=== PATIENT | male | born 1970 ===

== ENCOUNTER 2017-06-15 13:34 | Emergency (ER) | payer OTHER ==
[2017-06-15] MEDS ORDERED: TDAP VACCINE 0.5 ML SUS IM ONE ×2 (15:29→15:43)
[2017-06-15] MEDS ORDERED: LIDOCAINE 1% W/EPI MPF 10 ML SOL INFIL ONE (15:57)
[2017-06-15] MEDS ORDERED: LIDOCAINE 1% W/EPI MPF 10 ML SOL ONE (15:58)
[2017-06-15 16:41] VITALS: RESP 16
[2017-06-15 17:04] VITALS: BP 130/75; PULSE 89; TEMP 97.7; O2SAT 100
== END 2017-06-15 17:11 | disposition short-term general hospital (02) ==
LOC: ED 13:34
DX: S02.119A Unspecified fracture of occiput, initial encounter for closed fracture (principal); S02.0XXA Fracture of vault of skull, initial encounter for closed fracture; S02.40FA Zygomatic fracture, left side, initial encounter for closed fracture; S06.4X9A Epidural hemorrhage with loss of consciousness of unspecified duration, initial encounter; S01.81XA Laceration without foreign body of other part of head, initial encounter; R68.84 Jaw pain; S20.222A Contusion of left back wall of thorax, initial encounter; S80.02XA Contusion of left knee, initial encounter; S80.211A Abrasion, right knee, initial encounter
CPT/HCPCS: 70450; 71250; 72125; 73130; 73560; 74176; 90715; 99285

== ENCOUNTER 2017-07-09 23:19 | Emergency (ER) | payer OTHER ==
[2017-07-10 00:35] LABS: BASOPHILS % (AUTO) 0 % (0-3); EOSINOPHILS % (AUTO) 1 % (0-9); HEMATOCRIT 36 % (39-53); MEAN CORPUSCULAR HGB CONC 34.7 gm/dl (32.0-36.0); MEAN CORPUSCULAR VOLUME 92 fL (80-100); NEUTROPHILS % (AUTO) 80.4 % (37-80)
[2017-07-10 00:58] VITALS: TEMP 98
[2017-07-10 01:00] LABS: ALBUMIN 3.6 gm/dl (3.4-5.0); POTASSIUM 3.9 mMol/L (3.5-5.1); THYROID STIMULATING HORMONE 0.334 uIU/ml (0.358-3.740)
[2017-07-10 01:54] VITALS: BP 120/74; PULSE 58; RESP 16; O2SAT 97
== END 2017-07-10 01:38 | disposition home or self-care (01) ==
LOC: ED 23:19
DX: S80.12XD Contusion of left lower leg, subsequent encounter (principal); Y09 Assault by unspecified means
CPT/HCPCS: 80053; 82550; 84443; 85025; 85378; 85610; 99283

== ENCOUNTER 2017-07-21 17:02 | Emergency (ER) | payer OTHER ==
[2017-07-21] MEDS ORDERED: SODIUM CHLORIDE 0.9% 1000ML 1,000 ML IV ONE (17:35)
[2017-07-21] MEDS ORDERED: ONDANSETRON HCL 4 MG/2 ML SOL IV ONE (17:35)
[2017-07-21] MEDS ORDERED: PANTOPRAZOLE SODIUM 40 MG/10 ML PDS IV ONE (17:35)
[2017-07-21 17:39] VITALS: RESP 16; TEMP 97.5
[2017-07-21] MEDS ORDERED: ONDANSETRON HCL 4 MG/2 ML SOL ONE (17:44)
[2017-07-21] MEDS ORDERED: ESOMEPRAZOLE SODIUM 40 MG VIAL IV ONE ×2 (17:46→18:00)
[2017-07-21] MEDS ORDERED: KETOROLAC TROMETHAMINE 30 MG/ML SOL IV ONE (18:25)
[2017-07-21] MEDS ORDERED: KETOROLAC TROMETHAMINE 30 MG/ML SOL ONE (18:32)
[2017-07-21 19:32] VITALS: BP 137/82; PULSE 67; O2SAT 95
== END 2017-07-21 19:18 | disposition home or self-care (01) ==
LOC: ED 17:02
DX: R51 Headache (principal); E87.1 Hypo-osmolality and hyponatremia; E86.0 Dehydration; Z87.828 Personal history of other (healed) physical injury and trauma
CPT/HCPCS: 99285 ×2; J1885; J2405; 70450

== ENCOUNTER 2017-07-26 05:12 | Emergency (ER) | payer OTHER ==
[2017-07-26] MEDS ORDERED: LORAZEPAM 2 MG/ML SOL IV ONE ×2 (05:50→07:05)
[2017-07-26] MEDS ORDERED: KETOROLAC TROMETHAMINE 30 MG/ML SOL IV ONE (05:50)
[2017-07-26] MEDS ORDERED: DEXTROSE/SALINE 0.45% 1,000 ML IV ONE (05:51)
[2017-07-26] MEDS ORDERED: LORAZEPAM 2 MG/ML SOL ONE ×2 (05:56→07:01)
[2017-07-26] MEDS ORDERED: KETOROLAC TROMETHAMINE 30 MG/ML SOL ONE (05:56)
[2017-07-26 06:03] VITALS: TEMP 98.9
[2017-07-26 06:07] LABS: BASOPHILS % (AUTO) 1 % (0-3); EOSINOPHILS % (AUTO) 0 % (0-9); HEMATOCRIT 41 % (39-53); MEAN CORPUSCULAR VOLUME 90 fL (80-100); MONOCYTES % (AUTO) 5.1 % (0-12); NEUTROPHILS % (AUTO) 82.4 % (37-80)
[2017-07-26 06:17] LABS: ALBUMIN 3.6 gm/dl (3.4-5.0); ALT 19 IU/L (14-63); GLOM FILT RATE 67 mL/min (>60); POTASSIUM 3.3 mMol/L (3.5-5.1); SODIUM 131 mMol/L (136-145)
[2017-07-26 06:21] LABS: ANISOCYTOSIS SLIGHT AMT
[2017-07-26 06:50] LABS: AMPHETAMINES NEGATIVE (NEGATIVE); METHADONE NEGATIVE (NEGATIVE); OPIATES(OP13) NEGATIVE (NEGATIVE); OXYCODONE(OXY) NEGATIVE (NEGATIVE); PROPOXYPHENE(PPX) NEGATIVE (NEGATIVE); TRICYCLIC ANTIDEPRESSANTS NEGATIVE (NEGATIVE)
[2017-07-26] MEDS ORDERED: SODIUM CHLORIDE 0.9% 1000ML 1,000 ML IV ONE (07:45)
[2017-07-26] MEDS ORDERED: CLONIDINE 0.1 MG TAB ONE (08:21)
[2017-07-26] MEDS ORDERED: CLONIDINE 0.1 MG TAB PO ONE (08:25)
[2017-07-26] MEDS ORDERED: LORAZEPAM 0.5 MG TAB ONE (09:46)
[2017-07-26] MEDS ORDERED: POTASSIUM CHLORIDE 10 MEQ TER PO ONE (09:47)
[2017-07-26] MEDS ORDERED: LORAZEPAM 0.5 MG TAB PO ONE (09:47)
[2017-07-26] MEDS ORDERED: POTASSIUM CHLORIDE 10 MEQ TER ONE (10:00)
[2017-07-26 11:15] VITALS: BP 137/95; PULSE 122; RESP 18; O2SAT 99
== END 2017-07-26 10:33 | disposition home or self-care (01) ==
LOC: ED 05:12
DX: F15.10 Other stimulant abuse, uncomplicated (principal); R42 Dizziness and giddiness; R51 Headache; E87.6 Hypokalemia
CPT/HCPCS: 99285 ×3; 80305; 84484; 85025; 93005; J1885; J2060 ×2; 80053; 96365; 96366; 96374; 96375; 99284

== ENCOUNTER 2018-12-15 21:44 | Emergency (ER) | payer BC, OTHER ==
[2018-12-15] MEDS ORDERED: SODIUM CHLORIDE 0.9% 1000ML 1,000 ML IV SCH (22:00)
[2018-12-15 22:14] LABS: HEMATOCRIT 49 % (39-53); HEMOGLOBIN 16.5 gm/dl (13.5-17.7); MEAN CORPUSCULAR HEMOGLOBIN 30.7 pg (27.0-32.0); MEAN CORPUSCULAR HGB CONC 33.5 gm/dl (32.0-36.0); MEAN CORPUSCULAR VOLUME 92 fL (80-100)
[2018-12-15 22:28] LABS: ALBUMIN 4.2 gm/dl (3.4-5.0); ALKALINE PHOSPHATASE 97 IU/L (46-116); ALT 20 IU/L (14-63); AST 17 IU/L (15-37); BILIRUBIN,TOTAL 0.4 mg/dl (0.2-1.0); BLOOD UREA NITROGEN 12 mg/dl (7-18); CALCIUM 9.3 mg/dl (8.5-10.1); CARBON DIOXIDE 25.6 mEq/L (21-32); CHLORIDE 100 mMol/L (98-107); CREATININE 1.32 mg/dl (0.80-1.30); GLUCOSE 109 mg/dl (74-106); SODIUM 138 mMol/L (136-145); TOTAL PROTEIN 8.1 gm/dl (6.4-8.2)
[2018-12-15 22:29] LABS: ACETAMINOPHEN < 2 ug/ml (10-30); ALCOHOL < 0.003 gm/dl (0.000-0.08)
[2018-12-15 22:30] LABS: BAND NEUTROPHILS % (MANUAL) 1 %; BASOPHILS % (MANUAL) 0 % (0-3); EOSINOPHILS % (MANUAL) 0 % (0-9); LYMPHOCYTES % (MANUAL) 4 % (10-50); MONOCYTES % (MANUAL) 3 % (0-12); NEUTROPHILS % (MANUAL) 92 % (37-80); NORMAL RBCS PRSENT
[2018-12-15] MEDS ORDERED: HYDRALAZINE HYDROCHLORIDE 20 MG/ML SOL IV PRN (22:45)
[2018-12-15] MEDS ORDERED: HYDRALAZINE HYDROCHLORIDE 20 MG/ML SOL ONE (22:48)
[2018-12-15 23:21] VITALS: RESP 16
[2018-12-15] MEDS ORDERED: LACTATED RINGERS 1,000 ML IV SCH (23:30)
[2018-12-15] MEDS ORDERED: LACTATED RINGERS 1,000 ML IV ONE (23:42)
[2018-12-15 23:58] VITALS: O2SAT 98
[2018-12-16 00:43] VITALS: TEMP 98.5
[2018-12-16 00:48] LABS: BASOPHILS % (AUTO) 0 % (0-3); EOSINOPHILS % (AUTO) 0 % (0-9); HEMATOCRIT 43 % (39-53); HEMOGLOBIN 14.6 gm/dl (13.5-17.7); LYMPHOCYTES % (AUTO) 8.5 % (10-50); MEAN CORPUSCULAR HEMOGLOBIN 31.2 pg (27.0-32.0); MEAN CORPUSCULAR HGB CONC 34.3 gm/dl (32.0-36.0); MEAN CORPUSCULAR VOLUME 91 fL (80-100); MONOCYTES % (AUTO) 3.1 % (0-12); NEUTROPHILS % (AUTO) 87.8 % (37-80)
[2018-12-16 01:03] LABS: AMPHETAMINES NEGATIVE (NEGATIVE); BARBITUATES NEGATIVE (NEGATIVE); BENZODIAZEPINES NEGATIVE (NEGATIVE); CANNABINOL(THC) NEGATIVE (NEGATIVE); COCAINE(COC) NEGATIVE (NEGATIVE); METHADONE NEGATIVE (NEGATIVE); METHAMPHETAMINES NEGATIVE (NEGATIVE); OPIATES(OPI) NEGATIVE (NEGATIVE); OXYCODONE(OXY) NEGATIVE (NEGATIVE); PROPOXYPHENE(PPX) NEGATIVE (NEGATIVE); TRICYCLIC ANTIDEPRESSANTS NEGATIVE (NEGATIVE)
[2018-12-16] MEDS ORDERED: CEFTRIAXONE 1 GM PDS IM ONE (01:18)
[2018-12-16] MEDS ORDERED: CEFTRIAXONE 1 GM PDS ONE (01:24)
[2018-12-16] MEDS ORDERED: LIDOCAINE HCL 1% MPF 30 SOL ONE (01:25)
[2018-12-16 02:35] VITALS: BP 151/98; PULSE 89
== END 2018-12-16 01:27 | disposition home or self-care (01) ==
LOC: ED 21:44
DX: R41.0 Disorientation, unspecified (principal); T68.XXXA Hypothermia, initial encounter; X31.XXXA Exposure to excessive natural cold, initial encounter
CPT/HCPCS: 36415; 70450; 80053; 80305; 80307; 83735; 85007; 85025; 85027; 96365; 96366; 96374; 99283; 99284; J0360; J0696; J2001